=== PATIENT | female | born 1980 | race Two or more races ===

== ENCOUNTER 2021-04-15 18:17 | Emergency (ER) | payer OTHER ==
[~2021-04-15] VITALS: Ht 160 cm; Wt 80.0 kg
[2021-04-15 19:26] VITALS: BP 127/72
--- NOTE | 2021-04-15 21:30 | NUR ---
PT AMBULATORY TO TRIAGE FOR PROVIDER EVAL. DR BRUK AT BEDSIDE. PT ASSESSMENT, TEST RESULTS REVIEWED AND QUESTIONS ANSWERED. D/C PLAN REVIEWED.
--- NOTE | 2021-04-15 21:44 | NUR ---
Patient/Caregiver given discharge instructions and they have confirmed that they understand the instructions. Patient ambulatory with steady gait.
== END 2021-04-15 21:45 | disposition home or self-care (01) ==
LOC: ED 18:20
DX: U07.1 COVID-19 (principal); J06.9 Acute upper respiratory infection, unspecified
CPT/HCPCS: 71045; 99284; U0003; U0005